=== PATIENT | female | born 1985 | race African-American/Black ===

== ENCOUNTER 2019-09-17 00:08 | Emergency (ER) | payer SELFPAY ==
[~2019-09-17] VITALS: Ht 172.7 cm; Wt 106.6 kg
[2019-09-17] MEDS ORDERED: ONDANSETRON HCL INJ 2MG/ML 2ML 2 MG/ML VIAL IV STA (00:25)
[2019-09-17] MEDS ORDERED: SODIUM CHLORIDE 0.9% 1000ML 1,000 ML IV STA (00:25)
[2019-09-17] MEDS ORDERED: MORPHINE SULFATE 2 MG/ML SYR 1ML IV STA (00:25)
[2019-09-17] MEDS ORDERED: ONDANSETRON HCL INJ 2MG/ML 2ML 2 MG/ML VIAL ONE (00:42)
[2019-09-17] MEDS ORDERED: MORPHINE SULFATE INJ 4 MG/ML INJ 1ML ONE (00:43)
[2019-09-17] MEDS ORDERED: SODIUM CHLORIDE 0.9% 1000ML 1,000 ML ONE (00:43)
--- NOTE | 2019-09-17 01:34 | NUR ---
PT C/O ITCHING. INFORMED MD
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
[2019-09-17] MEDS ORDERED: DIPHENHYDRAMINE HCL INJ 50 MG/ML VIAL ONE (01:42)
--- NOTE | 2019-09-17 01:52 | Diagnostic Imaging Report ---
EXAM: CT Abdomen and Pelvis WITHOUT contrast INDICATION: Pelvic Pain , abdominal pain, nausea, vomiting, right lower quadrant pain, COMPARISON: None. TECHNIQUE: Abdomen and pelvis were scanned utilizing a multidetector helical scanner from the lung base to the pubic symphysis without administration of IV contrast. Absence of intravenous contrast decreases sensitivity for detection of focal lesions and vascular pathology. Coronal and sagittal reformations were obtained. Routine protocol was performed. IV CONTRAST: None ORAL CONTRAST: None COMPLICATIONS: None RADIATION DOSE: Total DLP: 1317 mGy*cm Estimated effective dose: (DLP x 0.015 x size factor) mSv CTDIvol has been reviewed. It is below the limits set by the Radiation Protocol Committee (RPC). Dose modulation, iterative reconstruction, and/or weight based adjustment of the mA/kV was utilized to reduce the radiation dose to as low as reasonably achievable. FINDINGS: LINES and TUBES: None. LOWER THORAX: Unremarkable HEPATOBILIARY: No focal hepatic lesions. No biliary ductal dilation. GALLBLADDER: No radio-opaque stones or sludge. No wall thickening. SPLEEN: No splenomegaly. PANCREAS: No focal masses or ductal dilatation. ADRENALS: No adrenal nodules KIDNEYS/URETERS: No hydronephrosis. No cystic or solid mass lesions. No stones. GI TRACT: No abnormal distention, wall thickening, or evidence of bowel obstruction. Appendix is normal. PELVIC ORGANS/BLADDER: Mildly enlarged uterus. Urinary bladder and adnexa are unremarkable. LYMPH NODES: No lymphadenopathy. VESSELS: Unremarkable. PERITONEUM / RETROPERITONEUM: No free air or fluid. BONES: Unremarkable. SOFT TISSUES: Unremarkable. IMPRESSION: Mildly enlarged uterus, possibly due to fibroids. Recommend nonemergent pelvic ultrasound. Signed by: Farhad Cooper DO on 09/17/2019 1:48 AM
[2019-09-17] MEDS ORDERED: DIPHENHYDRAMINE HCL INJ 50 MG/ML VIAL IV ONE (02:00)
--- NOTE | 2019-09-17 02:05 | NUR ---
INFORMED OF CT RESULTS BACK
--- NOTE | 2019-09-17 02:58 | NUR ---
NO ITCHING AT THIS TIME
[2019-09-17 02:59] VITALS: BP 142/76
== END 2019-09-17 02:58 | disposition home or self-care (01) ==
LOC: FSED 00:35
DX: R10.31 Right lower quadrant pain (principal); N39.0 Urinary tract infection, site not specified; R11.2 Nausea with vomiting, unspecified; R06.02 Shortness of breath; Z86.718 Personal history of other venous thrombosis and embolism; F17.210 Nicotine dependence, cigarettes, uncomplicated
CPT/HCPCS: 74176; 80053; 80076; 81003; 81025; 85025; 96374; 96375; 96376; 99284; J1200; J2270; J2405; J7030

== ENCOUNTER 2019-09-21 14:11 | Emergency (ER) | payer SELFPAY ==
[~2019-09-21] VITALS: Ht 172.7 cm; Wt 112.5 kg
[2019-09-21] MEDS ORDERED: FAMOTIDINE 20 MG/2 ML VIAL IV STA (14:27)
[2019-09-21] MEDS ORDERED: EPINEPHRINE 0.3 MG/0.3 ML PEN.INJCTR SC STA (14:27)
[2019-09-21] MEDS ORDERED: DIPHENHYDRAMINE HCL INJ 50 MG/ML VIAL IV ONE (14:30)
[2019-09-21] MEDS ORDERED: METHYLPREDNISOLONE SOD SUCC 125 MG/2ML VIAL IV ONE (14:30)
[2019-09-21] MEDS ORDERED: FUROSEMIDE INJ 10 MG/ML 4 ML VIAL IV ONE (14:30)
[2019-09-21] MEDS ORDERED: DIPHENHYDRAMINE HCL INJ 50 MG/ML VIAL ONE (14:46)
[2019-09-21] MEDS ORDERED: FUROSEMIDE 40 MG TAB ONE (14:46)
[2019-09-21] MEDS ORDERED: METHYLPREDNISOLONE SOD SUCC 125 MG/2ML VIAL ONE (14:46)
[2019-09-21] MEDS ORDERED: FAMOTIDINE 20 MG/2 ML VIAL IV ONE (14:47)
[2019-09-21] MEDS ORDERED: EPINEPHRINE HCL SYRINGE ONE (14:47)
[2019-09-21] MEDS ORDERED: FUROSEMIDE INJ 10 MG/ML 4 ML VIAL ONE (14:51)
[2019-09-21] MEDS ORDERED: EPINEPHRINE HCL 1:1000 1ML 1 MG/ML AMP ONE (14:52)
[2019-09-21] MEDS ORDERED: PREDNISONE20 MG PO (15:24)
[2019-09-21] MEDS ORDERED: LASIX20 MG PO (15:24)
[2019-09-21 15:25] VITALS: BP 127/80
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
[2019-09-28] MEDS ORDERED: HYDROXYZINE HCL25 MG PO (18:10)
[2019-09-28] MEDS ORDERED: MEDROL4 MG PO (18:16)
[2019-09-28] MEDS ORDERED: FIORICET 50-301 EACH PO (18:28)
== END 2019-09-21 15:30 | disposition home or self-care (01) ==
LOC: FSED 14:30
DX: T78.40XA Allergy, unspecified, initial encounter (principal); L29.9 Pruritus, unspecified; R60.9 Edema, unspecified; F41.9 Anxiety disorder, unspecified; K58.9 Irritable bowel syndrome, unspecified; Z86.718 Personal history of other venous thrombosis and embolism
CPT/HCPCS: 99283; J0171; J1200; J1940; J2930